=== PATIENT | female | born 1940 | race Two or more races ===

== ENCOUNTER 2024-12-20 16:12 | Inpatient (IN) | payer MEDICARE, OTHER ==
[~2024-12-20] VITALS: Ht 175.3 cm; Wt 38.1 kg
[2024-12-20] VITALS (17 sets, daily range): BP systolic 86–136; BP diastolic 62–90; TEMP 97.9; O2SAT 93–100
[2024-12-20] MEDS: IV NS 0.9% 1,000 ML BAG IV ONE (16:30)
[2024-12-20 17:00] LABS: BASOPHILS % (AUTO) 0.3 % (0.0-2.0); HEMATOCRIT 44 % (33-45); HEMOGLOBIN 14.9 g/dL (11.5-14.8); LYMPHOCYTES # (AUTO) 0.6 K/uL (0.8-4.8); LYMPHOCYTES % (AUTO) 4.5 % (20.0-44.0); MEAN CORPUSCULAR HEMOGLOBIN 29 PG (26.0-33.0); MEAN CORPUSCULAR HGB CONC 34 g/dl (31.0-36.0); MEAN CORPUSCULAR VOLUME 85 fL (82-100); MONOCYTES # (AUTO) 0.6 K/uL (0.1-1.30); MONOCYTES % (AUTO) 4.4 % (2.0-12.0); NEUTROPHILS # (AUTO) 11.8 K/uL (1.8-8.9); NEUTROPHILS % (AUTO) 90.8 % (43.0-81.0); PLATELET COUNT (AUTO) 174 K/uL (150-450); RED BLOOD CELL COUNT(AUTO) 5.16 MIL/uL (4.0-5.2); RED CELL DISTRIBUTION WIDTH 13.3 % (11.5-15.0); WHITE BLOOD COUNT (AUTO) 12.9 K/uL (4.3-11.0)
[2024-12-20 17:12] LABS: ALANINE AMINOTRANSFERASE 29 U/L (12-78); ALBUMIN 3.7 g/dL (3.4-5.0); ALKALINE PHOSPHATASE 76 U/L (46-116); ASPARTATE AMINOTRANSFERASE 33 U/L (15-37); BILIRUBIN,DIRECT 0.4 mg/dL (0.0-0.2); BILIRUBIN,TOTAL 2.3 mg/dL (0.2-1.0); CARBON DIOXIDE 30 mmol/L (21-32); CHLORIDE 100 mmol/L (98-107); CREATININE 0.9 mg/dL (0.6-1.3); GLUCOSE 187 mg/dL (74-106); INR 1.18 (0.91-1.10); PARTIAL THROMBOPLASTIN TIME 27.1 SEC (24.3-34.3); POTASSIUM 3.4 mmol/L (3.5-5.1); PROTHROMBIN TIME 12.4 SECS (9.2-11.1); SODIUM SERUM 138 mmol/L (136-145); TOTAL PROTEIN, SERUM 8.2 g/dL (6.4-8.2); UREA NITROGEN, BLOOD 18 mg/dL (7-18)
[2024-12-20] MEDS: CEFEPIME 1 GM in IV D5W 50 ML IV ONE (17:15)
[2024-12-20 17:18] LABS: LACTIC ACID 2.4 mmol/L (0.4-2.0)
[2024-12-20 17:18] LABS: ABG BASE EXCESS -2.9 mmol/L (-2.0-3.0); ABG OXYGEN SATURATION 94.9 % (94.0-98.0); ABG PCO2 34.4 mmHg (32.0-45.0); ABG PH 7.404 (7.350-7.450); ABG PO2 75.8 mmHg (83.0-108.0); ABG TOTAL HEMOGLOBIN 14.8 G/dL (12.0-16.0); COHb 0.3 % (0.5-1.5); MetHb 0.3 % (0.0-1.5); O2Hb 94.3 % (94.0-97.0); SITE, ABG LEFT RADIAL
[2024-12-20] MEDS: VANCOMYCIN 1 GM in IV D5W 250 ML IV ONE (17:40)
[2024-12-20 17:44] LABS: APPEARANCE,URINE SLIGHTLY CLOUDY (CLEAR); BILIRUBIN,URINE NEGATIVE (NEGATIVE); BLOOD, URINE 1+ Ery/uL (NEGATIVE); COLOR,URINE YELLOW (YELLOW); KETONES,URINE 1+ mg/dL (NEGATIVE); LEUKOCYTE ESTERASE ,URINE NEGATIVE (NEGATIVE); NITRITE, URINE NEGATIVE (NEGATIVE); PROTEIN,URINE 1+ mg/dl (NEGATIVE); UGLUCOSE NEGATIVE (NEGATIVE); UROBILINOGEN,URINE 0.2 EU/dL (0.2)
[2024-12-20] MEDS ORDERED: ZOLP10TA2 PO (18:12)
[2024-12-20] MEDS ORDERED: OLAN10TA3 PO (18:12)
[2024-12-20] MEDS ORDERED: BISO5TAB20 PO (18:12)
[2024-12-20] MEDS ORDERED: [UNRECOGNIZED DRUG - CODE] PO (18:12)
[2024-12-20] MEDS ORDERED: HYDR12.55 PO (18:12)
[2024-12-20] MEDS ORDERED: ERGO500093 PO (18:12)
[2024-12-20] MEDS ORDERED: ZILE600T5 PO (18:12)
[2024-12-20 18:19] LABS: BACTERIA,URINE Many /HPF (None Seen)
[2024-12-20 18:20] LABS: ADD URINE CULTURE YES
[2024-12-20 18:21] LABS: SQUAMOUS EPITHELIAL CELL,UR Rare /HPF (None Seen)
[2024-12-20] MEDS ORDERED: BISOPROLOL FUMARATE 5 MG TABLET PO PRN (19:30)
[2024-12-20] MEDS ORDERED: ALBUTEROL FS 2.5 MG/0.5 ML VIAL.NEB NEB PRN (19:30)
[2024-12-20] MEDS ORDERED: ONDANSETRON HCL/PF 4 MG/2 ML VIAL IVP PRN (19:30)
[2024-12-20] MEDS ORDERED: ACETAMINOPHEN 325 MG TABLET PO PRN (19:30)
[2024-12-20] MEDS ORDERED: AZITHROMYCIN 500 MG in IV D5W 250 ML IV SCH (19:30)
[2024-12-20] MEDS ORDERED: ACETAMINOPHEN 650 MG/SUPP.RECT RC ONE (19:42)
[2024-12-20] MEDS: ACETAMINOPHEN ES 500 MG TABLET PO ONE (19:46)
[2024-12-20] MEDS: ACETAMINOPHEN 650 MG/SUPP.RECT RC ONE ×2 (19:49→19:50)
[2024-12-20] MEDS: IPRATROPIUM NEB FS 0.5 MG/2.5 ML AMPUL.NEB IH SCH (19:59)
[2024-12-20] MEDS: ALBUTEROL FS 2.5 MG/3 ML VIAL.NEB IH SCH (19:59)
[2024-12-20] MEDS ORDERED: ALBUTEROL FS 2.5 MG/3 ML VIAL.NEB ONE (20:04)
[2024-12-20] MEDS ORDERED: IPRATROPIUM NEB FS 0.5 MG/2.5 ML AMPUL.NEB ONE (20:04)
[2024-12-20] MEDS: ZITHROMAX 500 MG/250 ML D5W IV SCH (20:25)
[2024-12-20] MEDS: IV NS 0.9% 1,000 ML IV SCH (21:04)
[2024-12-20] MEDS: OLANZAPINE 10 MG TABLET PO SCH (21:05)
[2024-12-20 21:30] LABS: ABG BASE EXCESS -2.5 mmol/L (-2.0-3.0); ABG OXYGEN SATURATION 98.1 % (94.0-98.0); ABG PCO2 30.6 mmHg (32.0-45.0); ABG PH 7.441 (7.350-7.450); ABG PO2 105.8 mmHg (83.0-108.0); ABG TOTAL HEMOGLOBIN 15.9 G/dL (12.0-16.0); COHb 0.5 % (0.5-1.5); MetHb 0.3 % (0.0-1.5); O2Hb 97.3 % (94.0-97.0); SITE, ABG RIGHT BRACHIAL
[2024-12-20] MEDS: HEPARIN SODIUM, PORCINE 5000 UNITS/1 ML VIAL SQ SCH (21:50)
[2024-12-20] MEDS ORDERED: PHENYLEPHRINE 50 MG in IV NS 0.9% 245 ML IV PRN (23:00)
[2024-12-20] MEDS: ENOXAPARIN SODIUM 40 MG/0.4 ML DISP.SYRIN SQ SCH (23:42)
[2024-12-21] VITALS (60 sets, daily range): BP systolic 89–168; BP diastolic 63–100; TEMP 97.6–98.6; O2SAT 92–100
[2024-12-21] MEDS: IV NS 0.9% 1,000 ML IV ONE (01:05)
[2024-12-21 05:07] LABS: HEMATOCRIT 41 % (33-45); HEMOGLOBIN 13.7 g/dL (11.5-14.8); RED BLOOD CELL COUNT(AUTO) 4.75 MIL/uL (4.0-5.2); WHITE BLOOD COUNT (AUTO) 11.5 K/uL (4.3-11.0)
[2024-12-21 05:08] LABS: BASOPHILS % (AUTO) 0.3 % (0.0-2.0); EOSINOPHILS % (AUTO) 0.3 % (0.0-6.0); LYMPHOCYTES % (AUTO) 8.4 % (20.0-44.0); MEAN CORPUSCULAR HEMOGLOBIN 29 PG (26.0-33.0); MEAN CORPUSCULAR HGB CONC 34 g/dl (31.0-36.0); MEAN CORPUSCULAR VOLUME 86 fL (82-100); MONOCYTES # (AUTO) 0.4 K/uL (0.1-1.30); MONOCYTES % (AUTO) 3.5 % (2.0-12.0); NEUTROPHILS # (AUTO) 10.1 K/uL (1.8-8.9); NEUTROPHILS % (AUTO) 87.5 % (43.0-81.0); PLATELET COUNT (AUTO) 145 K/uL (150-450); RED CELL DISTRIBUTION WIDTH 13.7 % (11.5-15.0)
[2024-12-21 05:24] LABS: ABG BASE EXCESS -3.4 mmol/L (-2.0-3.0); ABG OXYGEN SATURATION 98.6 % (94.0-98.0); ABG PCO2 31.9 mmHg (32.0-45.0); ABG PH 7.417 (7.350-7.450); ABG PO2 125.4 mmHg (83.0-108.0); ABG TOTAL HEMOGLOBIN 14.7 G/dL (12.0-16.0); COHb 0.5 % (0.5-1.5); MetHb 0.3 % (0.0-1.5); O2Hb 97.8 % (94.0-97.0); SITE, ABG RIGHT RADIAL
[2024-12-21 05:39] LABS: ALBUMIN 2.6 g/dL (3.4-5.0); BILIRUBIN,TOTAL 1.6 mg/dL (0.2-1.0); CALCIUM, SERUM 7.8 mg/dL (8.5-10.1); CREATININE 0.7 mg/dL (0.6-1.3); MAGNESIUM 1.9 mg/dL (1.8-2.4); PHOSPHORUS 2.6 mg/dL (2.5-4.9); POTASSIUM 3.7 mmol/L (3.5-5.1); TOTAL PROTEIN, SERUM 6.3 g/dL (6.4-8.2)
[2024-12-21] MEDS: DOCUSATE SODIUM LIQ 100 MG/10 ML UDC PO SCH (08:35)
[2024-12-21] MEDS: CEFTRIAXONE 1 G in IV D5W 50 ML IV SCH (08:35)
[2024-12-21] MEDS: POLYETHYLENE GLYCOL 3350 17 GM POWD.PACK PO SCH (08:35)
[2024-12-21] MEDS: CEFEPIME 2 GM in IV D5W 100 ML IV SCH (10:32)
[2024-12-21] MEDS: IV NS 0.9% 1,000 ML IV PRN (14:38)
[2024-12-21] MEDS: ACETAMINOPHEN 650 MG/SUPP.RECT RC PRN (20:34)
[2024-12-22] VITALS (40 sets, daily range): BP systolic 119–169; BP diastolic 63–105; TEMP 97.5–98; O2SAT 92–100
[2024-12-22] MEDS: hydrALAZINE HCL IV 20 MG VIAL IV PRN (03:10)
[2024-12-22] MEDS ORDERED: MORPHINE SULFATE INJ 2 MG/ML DISP.SYRIN IV PRN (10:30)
[2024-12-22 10:40] LABS: CREATININE 0.7 mg/dL (0.6-1.3); POTASSIUM 3.1 mmol/L (3.5-5.1)
[2024-12-22 10:54] LABS: BASOPHILS # (AUTO) 0.1 K/uL (0.0-0.2); BASOPHILS % (AUTO) 0.6 % (0.0-2.0); EOSINOPHILS % (AUTO) 0.4 % (0.0-6.0); HEMATOCRIT 39 % (33-45); HEMOGLOBIN 13.6 g/dL (11.5-14.8); LYMPHOCYTES # (AUTO) 0.9 K/uL (0.8-4.8); LYMPHOCYTES % (AUTO) 8.9 % (20.0-44.0); MEAN CORPUSCULAR HEMOGLOBIN 29 PG (26.0-33.0); MEAN CORPUSCULAR HGB CONC 35 g/dl (31.0-36.0); MEAN CORPUSCULAR VOLUME 84 fL (82-100); MONOCYTES # (AUTO) 0.4 K/uL (0.1-1.30); MONOCYTES % (AUTO) 4.3 % (2.0-12.0); NEUTROPHILS # (AUTO) 8.3 K/uL (1.8-8.9); NEUTROPHILS % (AUTO) 85.8 % (43.0-81.0); PLATELET COUNT (AUTO) 127 K/uL (150-450); RED BLOOD CELL COUNT(AUTO) 4.64 MIL/uL (4.0-5.2); RED CELL DISTRIBUTION WIDTH 13.6 % (11.5-15.0); WHITE BLOOD COUNT (AUTO) 9.6 K/uL (4.3-11.0)
[2024-12-22] MEDS: MORPHINE SULFATE INJ 2 MG/ML DISP.SYRIN IV PRN ×2 (13:10→18:55)
[2024-12-22] MEDS: POTASSIUM CL. PREMIX PERIPHER. 50 ML IV SCH (14:55)
[2024-12-22] MEDS ORDERED: POTASSIUM CHLORIDE 10 MEQ/50 ML PREMIXED IVPB FOR PERIPHERAL LINE IV ONE (15:00)
[2024-12-22] MEDS: ENOXAPARIN SODIUM 40 MG/0.4 ML DISP.SYRIN SQ SCH (18:55)
[2024-12-23] VITALS (29 sets, daily range): BP systolic 114–176; BP diastolic 67–95; TEMP 98.6–98.9; O2SAT 85–99
[2024-12-23 05:40] LABS: BASOPHILS # (AUTO) 0.1 K/uL (0.0-0.2); BASOPHILS % (AUTO) 0.6 % (0.0-2.0); EOSINOPHILS # (AUTO) 0.1 K/uL (0.0-0.7); EOSINOPHILS % (AUTO) 0.8 % (0.0-6.0); HEMATOCRIT 37 % (33-45); HEMOGLOBIN 12.8 g/dL (11.5-14.8); MEAN CORPUSCULAR HEMOGLOBIN 29 PG (26.0-33.0); MEAN CORPUSCULAR HGB CONC 35 g/dl (31.0-36.0); MEAN CORPUSCULAR VOLUME 85 fL (82-100); MONOCYTES # (AUTO) 0.5 K/uL (0.1-1.30); MONOCYTES % (AUTO) 5.7 % (2.0-12.0); NEUTROPHILS # (AUTO) 7.5 K/uL (1.8-8.9); NEUTROPHILS % (AUTO) 81.9 % (43.0-81.0); PLATELET COUNT (AUTO) 123 K/uL (150-450); RED BLOOD CELL COUNT(AUTO) 4.36 MIL/uL (4.0-5.2); RED CELL DISTRIBUTION WIDTH 13.5 % (11.5-15.0); WHITE BLOOD COUNT (AUTO) 9.2 K/uL (4.3-11.0)
[2024-12-23 05:51] LABS: INR 1.01 (0.91-1.10); PROTHROMBIN TIME 10.7 SECS (9.2-11.1)
[2024-12-23 05:55] LABS: CALCIUM, SERUM 8.5 mg/dL (8.5-10.1); CARBON DIOXIDE 27 mmol/L (21-32); CHLORIDE 101 mmol/L (98-107); CREATININE 0.5 mg/dL (0.6-1.3); GLUCOSE 131 mg/dL (74-106); PHOSPHORUS 1.7 mg/dL (2.5-4.9); POTASSIUM 3.3 mmol/L (3.5-5.1); SODIUM SERUM 135 mmol/L (136-145); UREA NITROGEN, BLOOD 7 mg/dL (7-18)
[2024-12-23 06:06] LABS: LACTIC ACID 2.6 mmol/L (0.4-2.0)
[2024-12-23] MEDS: POTASSIUM CHLORIDE 20 MEQ POWDER PACKET NG SCH (10:14)
[2024-12-23] MEDS: POTASSIUM CL. PREMIX PERIPHER. 50 ML IV SCH ×2 (11:28→21:42)
[2024-12-23] MEDS: FUROSEMIDE 20 MG/2 ML VIAL IV SCH (11:29)
[2024-12-23 11:50] LABS: BILIRUBIN,DIRECT 0.3 mg/dL (0.0-0.2); BILIRUBIN,TOTAL 1.3 mg/dL (0.2-1.0)
[2024-12-23 12:04] LABS: LACTIC ACID REFLEX 2.3 mmol/L (0.4-1.9)
[2024-12-23] MEDS: IV D5/ 0.9% NACL 1,000 ML IV PRN (13:16)
[2024-12-23] MEDS: Sodium Phosphate 15 MMOL in IV NS 0.9% 245 ML IV ONE (16:25)
[2024-12-24] VITALS (23 sets, daily range): BP systolic 94–168; BP diastolic 52–111; TEMP 97.6–98.6; O2SAT 90–100
[2024-12-24 10:34] LABS: BASOPHILS % (AUTO) 0.5 % (0.0-2.0); EOSINOPHILS # (AUTO) 0.1 K/uL (0.0-0.7); EOSINOPHILS % (AUTO) 2.3 % (0.0-6.0); HEMATOCRIT 34 % (33-45); HEMOGLOBIN 12.1 g/dL (11.5-14.8); LYMPHOCYTES # (AUTO) 0.8 K/uL (0.8-4.8); MEAN CORPUSCULAR HEMOGLOBIN 30 PG (26.0-33.0); MEAN CORPUSCULAR HGB CONC 35 g/dl (31.0-36.0); MEAN CORPUSCULAR VOLUME 85 fL (82-100); MONOCYTES # (AUTO) 0.5 K/uL (0.1-1.30); MONOCYTES % (AUTO) 8.1 % (2.0-12.0); NEUTROPHILS # (AUTO) 4.9 K/uL (1.8-8.9); NEUTROPHILS % (AUTO) 77.1 % (43.0-81.0); PLATELET COUNT (AUTO) 134 K/uL (150-450); RED BLOOD CELL COUNT(AUTO) 4.04 MIL/uL (4.0-5.2); RED CELL DISTRIBUTION WIDTH 13.3 % (11.5-15.0); WHITE BLOOD COUNT (AUTO) 6.3 K/uL (4.3-11.0)
[2024-12-24 10:45] LABS: CALCIUM, SERUM 8.1 mg/dL (8.5-10.1); CREATININE 0.5 mg/dL (0.6-1.3); POTASSIUM 2.9 mmol/L (3.5-5.1)
[2024-12-24] MEDS: POTASSIUM CL. PREMIX PERIPHER. 50 ML IV SCH (11:35)
[2024-12-24] MEDS ORDERED: LIDOCAINE HCL/MPF 1% 30 ML VIAL IJ ONE ×2 (12:35→13:39)
[2024-12-24] MEDS ORDERED: ANESTHESIA TRAY IN PYXIS 1 EA TRAY MC ONE (12:35)
[2024-12-24] MEDS ORDERED: IOHEXOL 50 ML IV ONE (12:35)
[2024-12-24] MEDS ORDERED: MIDAZOLAM HCL 2 MG/2ML VIAL ONE (12:51)
[2024-12-24] MEDS ORDERED: FENTANYL PF 100MCG/2ML AMPUL ONE (12:51)
[2024-12-24] MEDS ORDERED: ROCURONIUM BROMIDE 50 MG/5 ML ONE (12:52)
[2024-12-24] MEDS ORDERED: VANCOMYCIN 1 GM VIAL ONE (16:55)
[2024-12-24] MEDS ORDERED: FENTANYL PF 250MCG/5ML AMPUL ONE (16:56)
[2024-12-24] MEDS ORDERED: TRANEXAMIC ACID 1,000 MG/10 ML VIAL ONE (16:56)
[2024-12-24] MEDS ORDERED: BUPIVACAINE 0.25% 75 MG/30 ML VIAL ONE (16:57)
[2024-12-24] MEDS ORDERED: POLYMYXIN B SULFATE 500,000 UNITS ONE (17:40)
[2024-12-24] MEDS ORDERED: LABETALOL HCL IV 100MG VIAL ONE (18:13)
[2024-12-24] MEDS ORDERED: NALOXONE HCL 0.4 MG/ML AMPUL IV PRN (20:30)
[2024-12-24] MEDS ORDERED: ONDANSETRON HCL/PF 4 MG/2 ML VIAL IVP PRN (20:30)
[2024-12-24 20:44] LABS: ABG BASE EXCESS 0.5 mmol/L (-2.0-3.0); ABG OXYGEN SATURATION 98.6 % (94.0-98.0); ABG PCO2 41.3 mmHg (32.0-45.0); ABG PH 7.405 (7.350-7.450); ABG PO2 150.1 mmHg (83.0-108.0); ABG TOTAL HEMOGLOBIN 12.1 G/dL (12.0-16.0); COHb 0.2 % (0.5-1.5); MetHb 0.3 % (0.0-1.5); O2Hb 98.1 % (94.0-97.0); SITE, ABG LEFT BRACHIAL
[2024-12-25] VITALS (24 sets, daily range): BP systolic 99–157; BP diastolic 57–97; TEMP 97.6–98.6; O2SAT 77–100
[2024-12-25] MEDS: CEFAZOLIN 1 GM in IV D5W 50 ML IV SCH (00:30)
[2024-12-25 04:11] LABS: CALCIUM, SERUM 8.6 mg/dL (8.5-10.1); CREATININE 0.5 mg/dL (0.6-1.3)
[2024-12-25] MEDS: ENOXAPARIN SODIUM 40 MG/0.4 ML DISP.SYRIN SQ SCH (21:31)
[2024-12-26 00:20] VITALS: BP 124/68; TEMP 97.3; O2SAT 98
[2024-12-26 03:40] VITALS: BP 123/71; TEMP 97.5; O2SAT 99
[2024-12-26 06:59] LABS: BASOPHILS % (AUTO) 0.5 % (0.0-2.0); CALCIUM, SERUM 7.9 mg/dL (8.5-10.1); CREATININE 0.5 mg/dL (0.6-1.3); EOSINOPHILS # (AUTO) 0.3 K/uL (0.0-0.7); EOSINOPHILS % (AUTO) 3.7 % (0.0-6.0); HEMATOCRIT 28 % (33-45); HEMOGLOBIN 9.9 g/dL (11.5-14.8); LYMPHOCYTES # (AUTO) 1.1 K/uL (0.8-4.8); LYMPHOCYTES % (AUTO) 14.1 % (20.0-44.0); MEAN CORPUSCULAR HEMOGLOBIN 30 PG (26.0-33.0); MEAN CORPUSCULAR HGB CONC 35 g/dl (31.0-36.0); MEAN CORPUSCULAR VOLUME 85 fL (82-100); MONOCYTES # (AUTO) 0.7 K/uL (0.1-1.30); MONOCYTES % (AUTO) 8.6 % (2.0-12.0); NEUTROPHILS # (AUTO) 5.7 K/uL (1.8-8.9); NEUTROPHILS % (AUTO) 73.1 % (43.0-81.0); PLATELET COUNT (AUTO) 160 K/uL (150-450); RED BLOOD CELL COUNT(AUTO) 3.35 MIL/uL (4.0-5.2); RED CELL DISTRIBUTION WIDTH 12.8 % (11.5-15.0); WHITE BLOOD COUNT (AUTO) 7.8 K/uL (4.3-11.0)
[2024-12-26 09:16] LABS: ANISOCYTOSIS 1+; EOSINOPHILS % (MANUAL) 4 % (0-4); LYMPHOCYTES % (MANUAL) 19 % (16-48); MONOCYTES % (MANUAL) 7 % (0-11.0); NEUTROPHILS % (MANUAL) 70 (42-76); PLATELET ESTIMATE ADEQUATE
[2024-12-26 09:30] LABS: ABG BASE EXCESS 6.7 mmol/L (-2.0-3.0); ABG OXYGEN SATURATION 96.4 % (94.0-98.0); ABG PCO2 45.5 mmHg (32.0-45.0); ABG PH 7.456 (7.350-7.450); ABG TOTAL HEMOGLOBIN 10.9 G/dL (12.0-16.0); MetHb 0.1 % (0.0-1.5); O2Hb 96.3 % (94.0-97.0); SITE, ABG RIGHT RADIAL
[2024-12-26] MEDS: POTASSIUM CL. PREMIX PERIPHER. 50 ML IV SCH (09:40)
[2024-12-26] MEDS ORDERED: PHARMACY ADD 1 AMP MVI TO IVF DAILY ONE BAG XX PRN (10:00)
[2024-12-26] MEDS ORDERED: MVI ADULT 10ML VIAL = 1AMP 10 ML in IV D5/ 0.9% NACL 1,000 ML IV SCH (10:30)
[2024-12-26] MEDS ORDERED: MVI ADULT 10ML VIAL = 1AMP 10 ML in IV D5/ 0.9% NACL 1,000 ML IV PRN (10:30)
[2024-12-26] MEDS: MVI ADULT 10ML VIAL = 1AMP 10 ML in IV D5/ 0.9% NACL 1,000 ML IV PRN (10:44)
[2024-12-26] MEDS ORDERED: OLANZAPINE ZYDIS 5 MG TAB.RAPDIS SL ONE (12:00)
[2024-12-26] MEDS: OLANZAPINE ZYDIS 5 MG TAB.RAPDIS SL ONE (12:11)
[2024-12-26] MEDS ORDERED: BISACODYL SUPP (10 MG) 10 MG/SUPP.RECT SUPP.RECT RC PRN (12:30)
[2024-12-26] MEDS ORDERED: BISACODYL (5 MG) 5 MG TABLET.DR PO PRN (12:30)
[2024-12-26] MEDS: SOD FERRIC GLUC 125 MG in IV NS 0.9% 100 ML IV SCH (13:39)
[2024-12-26] MEDS ORDERED: MORPHINE SULFATE INJ 2 MG/ML DISP.SYRIN IV PRN (14:30)
[2024-12-26] MEDS ORDERED: CALAMINE 118 ML BOTTLE TP PRN (15:30)
[2024-12-26 16:00] VITALS: BP 141/80; TEMP 97.9; O2SAT 96
[2024-12-26] MEDS: METOPROLOL TARTRATE INJ 5 MG/5 ML AMPUL IVP ONE (17:03)
[2024-12-26] MEDS: IV NS 0.9% 500 ML BAG IV ONE (18:02)
[2024-12-26 20:00] VITALS: BP 138/83; TEMP 98.4; O2SAT 94
[2024-12-26] MEDS: OLANZAPINE 2.5 MG TABLET PO SCH (21:22)
[2024-12-27] VITALS: BP 147/71; TEMP 97.9; O2SAT 96
[2024-12-27 04:00] VITALS: BP 100/59; TEMP 98.1; O2SAT 95
[2024-12-27 06:36] LABS: BASOPHILS % (AUTO) 0.4 % (0.0-2.0); EOSINOPHILS # (AUTO) 0.3 K/uL (0.0-0.7); EOSINOPHILS % (AUTO) 4.2 % (0.0-6.0); HEMATOCRIT 31 % (33-45); HEMOGLOBIN 10.6 g/dL (11.5-14.8); LYMPHOCYTES # (AUTO) 1.1 K/uL (0.8-4.8); LYMPHOCYTES % (AUTO) 15.8 % (20.0-44.0); MEAN CORPUSCULAR HEMOGLOBIN 29 PG (26.0-33.0); MEAN CORPUSCULAR HGB CONC 34 g/dl (31.0-36.0); MEAN CORPUSCULAR VOLUME 85 fL (82-100); MONOCYTES # (AUTO) 0.6 K/uL (0.1-1.30); MONOCYTES % (AUTO) 8.8 % (2.0-12.0); NEUTROPHILS # (AUTO) 4.9 K/uL (1.8-8.9); NEUTROPHILS % (AUTO) 70.8 % (43.0-81.0); PLATELET COUNT (AUTO) 204 K/uL (150-450); RED BLOOD CELL COUNT(AUTO) 3.65 MIL/uL (4.0-5.2)
[2024-12-27 07:00] VITALS: BP 96/52; TEMP 98.2; O2SAT 97
[2024-12-27 07:01] LABS: CREATININE 0.5 mg/dL (0.6-1.3); POTASSIUM 3.5 mmol/L (3.5-5.1)
[2024-12-27] MEDS: CEFTRIAXONE 1 G in IV D5W 50 ML IV SCH (10:48)
[2024-12-27 11:30] VITALS: BP 154/74; TEMP 97.7; O2SAT 93
[2024-12-27] MEDS ORDERED: TPN/PPN PER PHARMACY IV PRN (14:30)
[2024-12-27] MEDS: BISACODYL SUPP (10 MG) 10 MG/SUPP.RECT SUPP.RECT RC ONE (15:10)
[2024-12-27] MEDS: HYDROCODONE/APAP 5/325MG TABLET PO PRN (15:43)
[2024-12-27 16:00] VITALS: BP 149/85; TEMP 97.5; O2SAT 97
[2024-12-27] MEDS ORDERED: DEXTROSE 50%-WATER 50 ML DISP.SYRIN IV PRN (16:00)
[2024-12-27 17:18] LABS: BASOPHILS % (AUTO) 0.6 % (0.0-2.0); EOSINOPHILS # (AUTO) 0.1 K/uL (0.0-0.7); EOSINOPHILS % (AUTO) 1.8 % (0.0-6.0); HEMATOCRIT 31 % (33-45); HEMOGLOBIN 10.5 g/dL (11.5-14.8); LYMPHOCYTES # (AUTO) 1.2 K/uL (0.8-4.8); MEAN CORPUSCULAR HEMOGLOBIN 28 PG (26.0-33.0); MEAN CORPUSCULAR HGB CONC 34 g/dl (31.0-36.0); MEAN CORPUSCULAR VOLUME 84 fL (82-100); MONOCYTES # (AUTO) 0.8 K/uL (0.1-1.30); NEUTROPHILS # (AUTO) 5.9 K/uL (1.8-8.9); NEUTROPHILS % (AUTO) 72.6 % (43.0-81.0); PLATELET COUNT (AUTO) 264 K/uL (150-450); RED BLOOD CELL COUNT(AUTO) 3.72 MIL/uL (4.0-5.2); RED CELL DISTRIBUTION WIDTH 13.2 % (11.5-15.0); WHITE BLOOD COUNT (AUTO) 8.1 K/uL (4.3-11.0)
[2024-12-27] MEDS: PPN #1 IV SCH (17:31)
[2024-12-27 17:39] LABS: ALBUMIN 2.1 g/dL (3.4-5.0)
[2024-12-27 17:42] LABS: PREALBUMIN 10.8 MG/DL (18.0-35.7)
[2024-12-27] MEDS: BLOOD SUGAR DIAGNOSTIC 1 EACH STRIP IN SCH (18:12)
[2024-12-27] MEDS: INSULIN REGULAR, HUMAN 100 UNIT/ML 3 ML VIAL SQ PRN (18:13)
[2024-12-27 20:00] VITALS: BP 153/70; TEMP 97.5; TEMP 97.9; O2SAT 96
[2024-12-27] MEDS: OLANZAPINE 2.5 MG TABLET PO SCH (21:28)
[2024-12-28] VITALS: BP 133/70; TEMP 97.5; TEMP 97.7; O2SAT 96
[2024-12-28 04:00] VITALS: BP 147/82; TEMP 98.2; O2SAT 96
[2024-12-28 06:48] LABS: BASOPHILS # (AUTO) 0.1 K/uL (0.0-0.2); BASOPHILS % (AUTO) 0.8 % (0.0-2.0); EOSINOPHILS # (AUTO) 0.2 K/uL (0.0-0.7); EOSINOPHILS % (AUTO) 3.4 % (0.0-6.0); HEMATOCRIT 31 % (33-45); HEMOGLOBIN 10.7 g/dL (11.5-14.8); LYMPHOCYTES # (AUTO) 1.3 K/uL (0.8-4.8); LYMPHOCYTES % (AUTO) 17.7 % (20.0-44.0); MEAN CORPUSCULAR HEMOGLOBIN 29 PG (26.0-33.0); MEAN CORPUSCULAR HGB CONC 35 g/dl (31.0-36.0); MEAN CORPUSCULAR VOLUME 84 fL (82-100); MONOCYTES # (AUTO) 0.7 K/uL (0.1-1.30); MONOCYTES % (AUTO) 10.4 % (2.0-12.0); NEUTROPHILS # (AUTO) 4.9 K/uL (1.8-8.9); NEUTROPHILS % (AUTO) 67.7 % (43.0-81.0); PLATELET COUNT (AUTO) 308 K/uL (150-450); RED BLOOD CELL COUNT(AUTO) 3.66 MIL/uL (4.0-5.2); RED CELL DISTRIBUTION WIDTH 13.2 % (11.5-15.0); WHITE BLOOD COUNT (AUTO) 7.2 K/uL (4.3-11.0)
[2024-12-28 07:15] LABS: CALCIUM, SERUM 8.5 mg/dL (8.5-10.1); CREATININE 0.5 mg/dL (0.6-1.3); MAGNESIUM 1.8 mg/dL (1.8-2.4); PHOSPHORUS 2.7 mg/dL (2.5-4.9); POTASSIUM 3.1 mmol/L (3.5-5.1)
[2024-12-28 07:18] LABS: CHOLESTEROL 164 mg/dL (<200); HDL CHOLESTEROL 44 mg/dL (40-60); LDL 110 mg/dL (0-99); TRIGLYCERIDES 130 mg/dL (30-150)
[2024-12-28 08:50] VITALS: BP 149/89; TEMP 98.8; O2SAT 97
[2024-12-28] MEDS: POTASSIUM CL. PREMIX PERIPHER. 50 ML IV SCH (11:43)
[2024-12-28 12:20] VITALS: BP 140/81; TEMP 97.5; O2SAT 98
[2024-12-28] MEDS: FAT EMULSION 20% 500 ML in PREMIX 1 EA IV SCH (14:00)
[2024-12-28] MEDS: Magnesium 1GM/D5W 100ML PREMIX 100 ML IV SCH (16:00)
[2024-12-28 16:39] VITALS: BP 139/78; TEMP 97.9; O2SAT 95
[2024-12-28] MEDS: TPN BAG#2 IV SCH (18:50)
[2024-12-28] MEDS: METOPROLOL TARTRATE INJ 5 MG/5 ML AMPUL IVP ONE (19:05)
[2024-12-28 20:00] VITALS: BP 131/76; TEMP 97.7; O2SAT 97
[2024-12-29] VITALS: BP 119/65; TEMP 97.5; O2SAT 98
[2024-12-29 04:00] VITALS: BP 142/68; TEMP 97.8; O2SAT 96
[2024-12-29 07:20] LABS: BASOPHILS % (AUTO) 0.5 % (0.0-2.0); EOSINOPHILS # (AUTO) 0.3 K/uL (0.0-0.7); EOSINOPHILS % (AUTO) 2.6 % (0.0-6.0); HEMATOCRIT 33 % (33-45); HEMOGLOBIN 11.8 g/dL (11.5-14.8); LYMPHOCYTES # (AUTO) 1.6 K/uL (0.8-4.8); LYMPHOCYTES % (AUTO) 15.8 % (20.0-44.0); MEAN CORPUSCULAR HEMOGLOBIN 30 PG (26.0-33.0); MEAN CORPUSCULAR HGB CONC 35 g/dl (31.0-36.0); MEAN CORPUSCULAR VOLUME 85 fL (82-100); MONOCYTES # (AUTO) 0.9 K/uL (0.1-1.30); MONOCYTES % (AUTO) 8.8 % (2.0-12.0); NEUTROPHILS # (AUTO) 7.1 K/uL (1.8-8.9); NEUTROPHILS % (AUTO) 72.3 % (43.0-81.0); PLATELET COUNT (AUTO) 397 K/uL (150-450); RED BLOOD CELL COUNT(AUTO) 3.92 MIL/uL (4.0-5.2); RED CELL DISTRIBUTION WIDTH 13.4 % (11.5-15.0); WHITE BLOOD COUNT (AUTO) 9.9 K/uL (4.3-11.0)
[2024-12-29 07:48] LABS: CALCIUM, SERUM 8.8 mg/dL (8.5-10.1); CREATININE 0.5 mg/dL (0.6-1.3); MAGNESIUM 1.9 mg/dL (1.8-2.4); PHOSPHORUS 2.2 mg/dL (2.5-4.9); POTASSIUM 3.7 mmol/L (3.5-5.1)
[2024-12-29 10:23] LABS: BAND % (MANUAL) 2 % (0.0-5.0); EOSINOPHILS % (MANUAL) 2 % (0-4); LYMPHOCYTES % (MANUAL) 28 % (16-48); MONOCYTES % (MANUAL) 2 % (0-11.0); NEUTROPHILS % (MANUAL) 66 (42-76); PLATELET ESTIMATE ADEQUATE
[2024-12-29] MEDS ORDERED: TPN BAG#3 IV SCH (11:00)
[2024-12-29] MEDS ORDERED: CEFTRIAXONE 1 G in IV D5W 50 ML IV SCH (12:00)
[2024-12-29] MEDS ORDERED: METOPROLOL TARTRATE INJ 5 MG/5 ML AMPUL IVP PRN (14:00)
== END 2024-12-29 15:05 | DRG 853 ==
LOC: ER 16:24 → ICU 20:24 → TELE 12-25 14:37 → MED 12-29 12:51
PROVIDERS: ADMIT Internal Medicine; ATTEND Nurse Practitioner Acute Care
PROC: 0SRS0J9 Replacement of Left Hip Joint, Femoral Surface with Synthetic Substitute, Cemented, Open Approach (ICD-10-PCS; principal; 2024-12-24)
PROC: 30233N1 Transfusion of Nonautologous Red Blood Cells into Peripheral Vein, Percutaneous Approach (ICD-10-PCS; 2024-12-24)
PROC: B519YZZ Fluoroscopy of Inferior Vena Cava using Other Contrast (ICD-10-PCS; 2024-12-24)
PROC: 06H03DZ Insertion of Intraluminal Device into Inferior Vena Cava, Percutaneous Approach (ICD-10-PCS; 2024-12-24)
DX: A41.9 Sepsis, unspecified organism (principal); G93.41 Metabolic encephalopathy; S72.002A Fracture of unspecified part of neck of left femur, initial encounter for closed fracture; I21.A1 Myocardial infarction type 2; J96.01 Acute respiratory failure with hypoxia; I26.99 Other pulmonary embolism without acute cor pulmonale; J15.9 Unspecified bacterial pneumonia; J69.0 Pneumonitis due to inhalation of food and vomit; J15.69 Pneumonia due to other Gram-negative bacteria; I82.412 Acute embolism and thrombosis of left femoral vein; J90 Pleural effusion, not elsewhere classified; J98.11 Atelectasis; F02.A18 Dementia in other diseases classified elsewhere, mild, with other behavioral disturbance; E87.20 Acidosis, unspecified; E44.0 Moderate protein-calorie malnutrition; N39.0 Urinary tract infection, site not specified; M81.0 Age-related osteoporosis without current pathological fracture; R13.10 Dysphagia, unspecified; E80.6 Other disorders of bilirubin metabolism; G20.A1 Parkinson's disease without dyskinesia, without mention of fluctuations; B96.20 Unspecified Escherichia coli [E. coli] as the cause of diseases classified elsewhere; B96.89 Other specified bacterial agents as the cause of diseases classified elsewhere; E88.09 Other disorders of plasma-protein metabolism, not elsewhere classified; Z79.899 Other long term (current) drug therapy; I48.91 Unspecified atrial fibrillation; I35.1 Nonrheumatic aortic (valve) insufficiency; R65.20 Severe sepsis without septic shock; E87.6 Hypokalemia; I10 Essential (primary) hypertension; I25.2 Old myocardial infarction; W18.30XA Fall on same level, unspecified, initial encounter; Z95.828 Presence of other vascular implants and grafts; F09 Unspecified mental disorder due to known physiological condition; F25.9 Schizoaffective disorder, unspecified; R41.0 Disorientation, unspecified; T36.1X5A Adverse effect of cephalosporins and other beta-lactam antibiotics, initial encounter; Y92.230 Patient room in hospital as the place of occurrence of the external cause
CPT/HCPCS: 36415; 36600; 70450-TC; 71045-TC; 71250-TC; 72170-TC; 72192-TC; 73502; 73560-TC; 74018; 80048-TC; 80053-TC; 80061-TC; 80076-TC; 81001; 82040-TC; 82247-TC; 82248-TC; 82803-TC; 82962-TC; 83605-TC; 83735-TC; 83880; 84100-TC; 84134-TC; 84484-TC; 85025-TC; 85610-TC; 85730-TC; 86850-TC; 87040-TC; 87081-TC; 87086-TC; 87186-TC; 92526; 92611-TC; 93307-TC; 93970-TC; 94760-TC; 94762-TC; 94799-TC; 97110-TC; 97112-TC; 97530-TC; 99082-TC; A4216; A4217; A4223; A6403; A9563; C1713; C1769; C1776; C1880; G0378; J0360; J0456; J0690; J0692; J0696; J1644; J1650; J1815; J1940; J2250; J2270; J2405; J2704; J2916; J3010; J3370; J3480; J3490; J7030; J7040; J7042; J7050; J7060; Q9967